=== PATIENT | female | born 1970 | race African-American/Black ===

== ENCOUNTER 2021-11-19 06:10 | Inpatient (IN) ==
[2021-11-19] MEDS ORDERED: cefOXitin 2,000 MG in 0.9 % Sodium Chloride 20 ML IVP ONE (06:29)
[2021-11-19] MEDS ORDERED: Ringers Solution, Lactated 1,000 ML IVC SCH (06:30)
[2021-11-19] MEDS ORDERED: *HR* Propofol 200 MG/20 ML VIAL IVP ONE (07:19)
[2021-11-19] MEDS ORDERED: *HR* Midazolam HCl 2 MG/2 ML VIAL ONE (07:19)
[2021-11-19] MEDS ORDERED: *HR* FentaNYL (PF) 100 MCG/2 ML VIAL ONE ×3 (07:19→09:40)
[2021-11-19] MEDS ORDERED: Promethazine 6.25 MG in Water for inj. (sterile) 20 ML IVPB PRN (07:22)
[2021-11-19] MEDS ORDERED: Famotidine 20 MG/2 ML VIAL IVP ONE (07:22)
[2021-11-19] MEDS ORDERED: Iopamidol - 300 50 ML VIAL ONE (07:22)
[2021-11-19] MEDS ORDERED: Ondansetron 4 MG/2 ML VIAL IVP PRN ×2 (07:22→11:12)
[2021-11-19] MEDS ORDERED: *HR* HYDROmorphone 2 MG TABLET PO PRN (07:22)
[2021-11-19] MEDS ORDERED: Scopolamine Patch 1.5 MG PATCH.TD72 TD ONE (07:22)
[2021-11-19] MEDS ORDERED: *HR* Rocuronium Bromide 50 MG/5 ML VIAL ONE ×2 (07:22→08:35)
[2021-11-19] MEDS ORDERED: Lidocaine -MPF 2% 5 ML VIAL ONE (07:22)
[2021-11-19] MEDS ORDERED: *HR* Labetalol 20 MG/4 ML SYRINGE IVP PRN (07:22)
[2021-11-19] MEDS ORDERED: Ketorolac 30 MG/ML VIAL IVP PRN (07:22)
[2021-11-19] MEDS ORDERED: Acetaminophen IV 1,000 MG/100 ML BAG IVPB ONE (07:22)
[2021-11-19] MEDS ORDERED: *HR* OxyCODONE Immed Rel 5 MG TABLET PO PRN (07:22)
[2021-11-19] MEDS ORDERED: Pregabalin 75 MG CAPSULE PO ONE (07:22)
[2021-11-19] MEDS ORDERED: Lidocaine HCL 4 ML Topical Solution (Laryng-O-Jet Kit Sterile Pak) TP ONE (07:22)
[2021-11-19] MEDS ORDERED: Sugammadex Sodium 200 MG/2 ML VIAL IV ONE (09:52)
[2021-11-19] MEDS ORDERED: Ketorolac 30 MG/ML VIAL ONE (09:54)
[2021-11-19] MEDS: *HR* HYDROmorphone (PF) 1 MG/ML SYRINGE IVP PRN ×3 (10:20→10:59)
[2021-11-19] MEDS ORDERED: Naloxone 0.4 MG/ML INJ IVP PRN (11:12)
[2021-11-19] MEDS ORDERED: Sennosides 8.6 MG TABLET PO PRN (11:12)
[2021-11-19] MEDS: *HR* OxyCODONE Immed Rel 5 MG TABLET PO PRN ×3 (11:52→20:23)
[2021-11-19] MEDS: Acetaminophen 325 MG TABLET PO SCH ×2 (13:35→20:16)
[2021-11-19] MEDS: Ibuprofen 400 MG TABLET PO SCH ×2 (14:19→21:55)
[2021-11-19] MEDS: Ringers Solution, Lactated 1,000 ML IVC SCH (15:40)
[2021-11-19] MEDS: CeFAZolin 2,000 MG/120 ML BAG IVPB SCH ×2 (15:43→23:47)
[2021-11-19] MEDS ORDERED: *HR* HYDROmorphone 2 MG/ML SYRINGE IVP PRN (16:42)
[2021-11-20] MEDS: *HR* OxyCODONE Immed Rel 5 MG TABLET PO PRN ×6 (00:10→22:18)
[2021-11-20] MEDS: Ringers Solution, Lactated 1,000 ML IVC SCH (00:15)
[2021-11-20] MEDS: Acetaminophen 325 MG TABLET PO SCH (04:11)
[2021-11-20 05:52] LABS: Basophils % 0.2 %; Eosinophils % 0.1 %; Hematocrit 29.8 % (35.3-44.9); Immature Granulocytes % 0.3 % (0-4); Lymphocytes # 1.3 K/mcL (0.6-4.6); Lymphocytes % 10.3 %; Mean Corpuscular HGB Conc 33.6 g/dL (31.6-35.5); Mean Corpuscular Hemoglobin 31.2 pg (28.0-33.3); Mean Corpuscular Volume 92.8 fL (83.0-100.0); Mean Platelet Volume 11.2 fL (9.4-12.4); Monocytes % 7.7 %; Platelet Count 224 K/mcL (140-400); Red Blood Count 3.21 M/mcL (3.82-4.97); Red Cell Distribution Width 11.9 % (11.5-14.5); Segmented Neutrophils % 81.4 %
[2021-11-20 05:55] LABS: Neutrophils # 10.5 K/mcL (1.6-8.9); White Blood Count 12.9 K/mcL (4.3-11.1)
[2021-11-20] MEDS: Ibuprofen 400 MG TABLET PO SCH ×3 (07:07→20:48)
[2021-11-20] MEDS: CeFAZolin 2,000 MG/120 ML BAG IVPB SCH ×2 (08:24→18:21)
[2021-11-20] MEDS: amLODIPine 5 MG TABLET PO SCH (08:31)
[2021-11-20] MEDS ORDERED: Linaclotide [Linzess] 145 MCG Capsule PO SCH (09:00)
[2021-11-21] MEDS: *HR* OxyCODONE Immed Rel 5 MG TABLET PO PRN ×2 (03:53→09:13)
[2021-11-21] MEDS: Ibuprofen 400 MG TABLET PO SCH ×2 (03:54→09:12)
[2021-11-21 04:27] VITALS: O2SAT 94
[2021-11-21 07:01] VITALS: BP 106/74; PULSE 87; TEMP 98.2
[2021-11-21] MEDS: amLODIPine 5 MG TABLET PO SCH (09:13)
== END 2021-11-21 10:30 | disposition home or self-care (01) | DRG 519 ==
LOC: SAMDAY 06:10 → 1NENUPED 10:59
PROVIDERS: ADMIT Obstetrics & Gynecology; ATTEND Obstetrics & Gynecology